=== PATIENT | female | born 1970 | race Caucasian/White ===

== ENCOUNTER 2024-05-25 18:16 | Outpatient (REF) | payer OTHER, SELFPAY | END 2024-05-25 18:17 | disposition home or self-care (01) | LOC: LAB 18:16 | PROVIDERS: Family Provider Family Medicine; Visit Provider Physician Assistant | DX: Z01.419 Encounter for gynecological examination (general) (routine) without abnormal findings (principal) | CPT/HCPCS: 88175 ==